=== PATIENT | female | born 1955 | race Caucasian/White ===

== ENCOUNTER → 2018-07-29 | Outpatient (CLI) | payer BC ==
[~2018-07-29] MED LIST: REGADENOSON 0.4 MG/5 ML DISP.SYRIN. IV ONE
--- NOTE | 2018-07-29 09:59 | PCVCIMAG ---
EXAM: BILATERAL RENAL ULTRASOUND AND BILATERAL RENAL DUPLEX INDICATION: Hypertension FINDINGS: Right kidney: Length measures 10.0 cm. No hydronephrosis or extensive renal scarring. Right renal duplex: Adequate technical quality. 70-80% proximal renal artery stenosis with increased systolic velocity 323 cm/s. The aortic to renal artery ratio is 3.7. The renal vein is patent. Left kidney: Length measures 10.0 cm. No hydronephrosis or extensive renal scarring. Left renal duplex: Adequate technical quality. No sonographic evidence of renal artery stenosis. The aortic to renal artery ratio is 2.5. The renal vein is patent. Bladder: No obvious abnormalities. IMPRESSION: 70-80% proximal right renal artery stenosis. No significant left renal artery stenosis. LOC:[id number]
--- NOTE | 2018-07-29 14:38 | PCVCIMAG ---
APPROVED REPORT Imaging Protocol: Rest Tc-99m/Stress Tc-99m 1 day Study performed: 07/29/2018 10:24:16 Indication: Chest pain, Tachycardia Patient Location: Out-Patient Stress Nurse: Judith Flores RN, Caryn Valdez RN NM Tech:Hood Rodriguez NMJUSTINB Ht: 5 ft 3 in Wt: 160 lbs BSA: 1.76 m2 HR: 93 bpm BP: 156/71 mmHg BMI: 28.3 Rhythm: Normal Sinus Rhythm Medical History Medical History: Age, Hyperlipidemia, HTN Medications: Lotensin, Procardia, Crestor, Symbicort Allergies: Amlodipine, Levaquin Pretest Chest Pain Characteristics: No chest pain Exercise History: Physically active Resting Data Rest SPECT myocardial perfusion imaging was performed in supine position 45 minutes following the intravenous injection of 11.8 mCi of Tc-99m Sestamibi. Time of rest injection: 0940 Date: 07/29/2018 Administration Route: IV Administration Site: Right AC Pharmacologic Stress Pharmacologic stress test was performed by injecting Regadenoson 0.4 mg IV push over 10-15 seconds immediately followed by the intravenous injection of 32.6 mCi of Tc-99m Sestamibi. Time of stress injection: 1110 Date: 07/29/2018 Administration Route: IV Administration Site: Right AC Gated Stress SPECT was performed 45 minutes after stress injection. The images were gated to evaluate regional wall motion and calculate left ventricular ejection fraction. Stress Test Details Stress Test: Pharmacologic stress testing performed using 0.4 mg of regadenoson per 5 mL given IV over 10 seconds. Reason for pharmacologic stress test: SOB. HRMax Heart Rate (APMHR): 156 bpm Resting HR: 93 bpmTarget HR (85% APMHR): 132 bpm Max HR Achieved: 129 bpm % of APMHR: 82 Recovery HR: 121 bpm BP Resting BP: 156/71 mmHg Max BP: 157/78 mmHg Recovery BP: 147/66 mmHg ECG Resting ECG: Sinus Rhythm Stress ECG: Sinus Tachycardia Arrhythmia: None Recovery ECG: Sinus Rhythm Clinical Reason for Termination: Completed protocol Stress Symptoms: Dyspnea Exercise duration: min 55 sec Symptoms resolved with caffeine. Stress ECG Conclusion 1. Adequate response to intravenous Lexiscan 2. Inadequate heart rate for ECG diagnosis Study Data Post stress, the left ventricular ejection was 90%.. SSS: 1 SRS: 0 SDS: 1 TID = 1.43. Perfusion There is a small area of moderately reduced uptake in the mid and apical segment of the anterolateral wall which is seen on the stress images and improves on the resting images. This area thickens and moves normally and is most consistent with ischemia. Wall Motion Normal left ventricular wall motion. Nuclear Conclusion ECG Findings: non-diagnostic Clinical Findings: negative for ischemia Nuclear Findings: positive for ischemia Exercise Capacity: not assessed Left Ventricular Function: normal 1. Intermediate to high risk study consistent with a small region of inducible anterolateral wall ischemia Interpreted by: Molly Ruff MD Electronically Approved: 07/29/2018 14:37:36 <Conclusion> 1. Adequate response to intravenous Lexiscan 2. Inadequate heart rate for ECG diagnosis
== END | disposition home or self-care (01) ==
LOC: EDBD → PCVCIMAG 12:10
PROVIDERS: ATTEND Internal Medicine
DX: I10 Essential (primary) hypertension (principal); R07.9 Chest pain, unspecified; I47.1 Supraventricular tachycardia
CPT/HCPCS: 76770; 78452; 93017; 93975; A9500; J2785